=== PATIENT | female | born 1945 | race Caucasian/White ===

== ENCOUNTER → 2016-07-28 | Outpatient (CLI) | payer MEDICARE, OTHER ==
[~2016-07-28] MED LIST: ASP81TEC PO; CHOL200035 PO; DOCU-161 PO; ESZO3TAB30 PO; FISH1200 PO; GLUC750T PO; HYDR1CAP2 PO; LEVO100T7 PO; LEVO75TA6 PO; LVT.05T PO; MULT-608 PO; POLY119P PO; SIMV20TA3 PO
--- NOTE | 2016-07-29 08:19 | Diagnostic Imaging Report ---
Bilateral screening mammogram The current study was also evaluated with a Computer Aided Detection (CAD) system. Indication: Screening. No current complaints stated on the questionnaire. COMPARISON: 02/02/15. FINDINGS: The breasts are composed of heterogeneously dense parenchyma which may decrease mammographic sensitivity. There are occasional benign-appearing calcifications. Allowing for technique and positional differences, no suspicious change is seen. IMPRESSION: No significant change. ACR BI-RADS Category 2: Benign findings. Result letter will be mailed to the patient. Note: At least 10% of breast cancer is not imaged by mammography. Dictated by: Dictated on workstation # [id number]
== END ==
LOC: RAD 10:20
PROVIDERS: ATTEND Family Medicine
DX: Z12.31 Encounter for screening mammogram for malignant neoplasm of breast (principal)
CPT/HCPCS: 77067

== ENCOUNTER → 2017-07-21 | Outpatient (CLI) | payer MEDICARE, OTHER ==
[2017-07-21] MEDS: IOHEXOL 350 MG/ML 100 ML (OMNIPAQUE 350) VIAL IV ONE (09:23)
[2017-07-21] MEDS: NS 250 ML (IVPB) BAG IV ONE (09:23)
[2017-07-21] MEDS: BARIUM SUSPENSION 2.1% (VANILLA SILQ) 450 ML PO ONE (09:23)
[2017-07-21] MEDS: CATHETER FLUSH 10 ML SYR IV PRN (09:24)
--- NOTE | 2017-07-21 10:27 | Diagnostic Imaging Report ---
PROCEDURE: CT abdomen and pelvis with and without contrast. TECHNIQUE: Precontrast acquisitions were acquired through the abdomen and pelvis. Multiple contiguous axial images were obtained through the abdomen and pelvis after the administration of intravenous contrast. INDICATION: Right upper quadrant pain extending posteriorly. Correlation is made with prior CT abdomen and pelvis from 10/06/2008. The lung bases are clear. The liver demonstrates generalized low density consistent with hepatic steatosis. No discrete liver mass is identified. The gallbladder is unremarkable. There is atrophy to the pancreas particularly pancreatic head and proximal body. The spleen is unremarkable. No adrenal mass is detected. The kidneys are unremarkable. Aorta is nonaneurysmal. There are several small lymph nodes identified in the central mesentery, nonspecific. No pathologically enlarged nodes are detected. The central retroperitoneum is unremarkable for lymphadenopathy. The small and large bowel loops are normal caliber. No obstruction is seen. The uterus and bladder are unremarkable. There is no ascites. No inguinal or iliac lymphadenopathy is detected. There does appear to be a fat-containing left inguinal hernia. IMPRESSION: 1. Hepatic steatosis. 2. Shotty lymph nodes in the central mesentery, nonspecific but can be seen with mesenteric adenitis. 3. No other significant abnormality is detected. Dictated by: Dictated on workstation # [id number]
== END ==
LOC: RAD 08:59
PROVIDERS: ATTEND Family Medicine
DX: K76.0 Fatty (change of) liver, not elsewhere classified (principal)
CPT/HCPCS: 74178

== ENCOUNTER → 2017-08-01 | Outpatient (CLI) | payer MEDICARE, OTHER | LOC: RAD 12:36 | PROVIDERS: ATTEND Family Medicine | DX: Z12.31 Encounter for screening mammogram for malignant neoplasm of breast (principal) | CPT/HCPCS: 77067 ==

== ENCOUNTER → 2018-05-28 | Outpatient (CLI) | payer MEDICARE, OTHER ==
--- NOTE | 2018-05-28 11:57 | Diagnostic Imaging Report ---
INDICATION: Fall, pain. FINDINGS: The cervical body heights are within normal limits. The prevertebral space is unremarkable. There are degenerative changes of the discs, endplates and facets; greatest at the mid to lower cervical spine. Base of the odontoid is intact. No fracture could be identified. IMPRESSION: Degenerative changes of spondylosis and facet arthrosis without radiographically apparent fracture or traumatic malalignment. Dictated by: Dictated on workstation # [id number]
--- NOTE | 2018-05-28 12:37 | Diagnostic Imaging Report ---
INDICATION: Fall. Back and neck pain. COMPARISON: Cervical spine views from same day. FINDINGS: Frontal and lateral radiographic views of the cervical spine were obtained. There is age indeterminate compression deformity of T4. Otherwise, thoracic vertebral body heights are maintained. There are mild multilevel degenerative changes. Evaluation of static alignment demonstrates mild levoscoliotic deformity of the lower thoracic spine. AP static alignment is maintained. Included portions of the lungs are clear. Note is made of calcified aortic atherosclerosis. IMPRESSION: Age-indeterminate compression deformity of T4. Correlation with point tenderness is recommended. If further evaluation is indicated, MRI is recommended. Dictated by: Dictated on workstation # [id number]
== END ==
LOC: RAD 11:27
PROVIDERS: ATTEND Family Medicine
DX: M47.812 Spondylosis without myelopathy or radiculopathy, cervical region (principal); M43.8X4 Other specified deforming dorsopathies, thoracic region; W00.9XXA Unspecified fall due to ice and snow, initial encounter
CPT/HCPCS: 72040; 72072

== ENCOUNTER → 2018-08-15 | Outpatient (CLI) | payer MEDICARE, OTHER ==
--- NOTE | 2018-08-15 14:44 | Diagnostic Imaging Report ---
INDICATION: Routine screening. COMPARISON: 08/01/2017 and 07/28/2016. TECHNIQUE: 2D and 3D bilateral screening mammography was performed with CAD. FINDINGS: Both breasts remain heterogeneously dense, limiting the sensitivity of mammography. Benign parenchymal and vascular calcifications are identified bilaterally. No new mass or malignant appearing microcalcifications are seen. The slightly nodular density in the outer right breast on the CC view appears stable. The axillae are unremarkable. IMPRESSION: No mammographic features suspicious for malignancy are identified. ACR BI-RADS Category 2: Benign findings. Result letter will be mailed to the patient. Note: At least 10% of breast cancer is not imaged by mammography. Dictated by: Dictated on workstation # [id number]
== END ==
LOC: RAD 09:39
PROVIDERS: ATTEND Nurse Practitioner Family
DX: Z12.31 Encounter for screening mammogram for malignant neoplasm of breast (principal)
CPT/HCPCS: 77067

== ENCOUNTER → 2018-08-20 | Outpatient (CLI) | payer MEDICARE, OTHER ==
--- NOTE | 2018-08-20 15:52 | Diagnostic Imaging Report ---
INDICATION: Fall with mid back pain and upper arm weakness. COMPARISON: Correlation is made with thoracic spine radiographs from 05/28/2018. FINDINGS: Curvature and alignment is normal. There appears to be mild superior endplate compression deformity involving the T2, T4 and T5 vertebral bodies. There is some mild edema along the superior endplate of the T2 and T4 level consistent with acute/subacute fractures. No abnormal marrow signal or edema within the T5 vertebral body is seen and this may be more chronic. There is generalized degenerative disc disease throughout the thoracic spine vertebral disc space narrowing and desiccation. Thoracic cord does show normal signal intensity. No epidural fluid collection is identified. No focal disc protrusion is seen. Small disc/osteophyte complex at right para midline location of the T2-T3 level is seen but no resultant central canal stenosis is identified. The paraspinous tissues are unremarkable. IMPRESSION: Findings consistent with acute/subacute superior endplate fracture of the T2 and T4 vertebral bodies with slight compression. No retropulsion is seen. There also appears to be chronic compression deformity involving the T5 vertebral body. Dictated by: Dictated on workstation # [id number]
== END ==
LOC: RAD 14:49
PROVIDERS: ATTEND Family Medicine
DX: S22.000A Wedge compression fracture of unspecified thoracic vertebra, initial encounter for closed fracture (principal); W19.XXXA Unspecified fall, initial encounter
CPT/HCPCS: 72146

== ENCOUNTER 2019-01-28 14:43 | Outpatient (RCR) | payer MEDICARE, OTHER ==
--- NOTE | 2019-01-28 15:42 | Diagnostic Imaging Report ---
INDICATION: Fall. Back pain. COMPARISON: None FINDINGS: Frontal and lateral views of the lumbar spine were obtained. Evaluation of static alignment shows slight grade 1 anterolisthesis at L4-L5 and slight grade 1 retrolisthesis at L5-S1. There is no evidence of jumped facets. Vertebral body heights are maintained. There is no evidence of acute fracture. There is also mild intervertebral disc height loss at the L4-L5 and L5-S1 levels. No unexpected radiopaque foreign bodies are seen. Moderate amount of air and stool is noted within the included portions of the colon. IMPRESSION: 1. Mild degenerative changes of the lumbar spine greatest at L4-L5 and L5-S1 levels. 2. No evidence of acute fracture or dislocation. 3. Moderate colonic air and stool. Please correlate for constipation. Dictated by: Dictated on workstation # [id number]
--- NOTE | 2019-01-28 17:40 | Diagnostic Imaging Report ---
EXAMINATION: Sacroiliac joints. INDICATION: Back pain. FINDINGS: Three views were obtained. There is no fracture, dislocation, or acute bony abnormality evident. There is mild degenerative disease involving the sacroiliac joints. The degenerative changes seem similar to the CT abdomen/pelvis exam of 07/21/2017. The soft tissues are unremarkable. IMPRESSION: 1. There is no evidence for an acute bony abnormality. 2. If there is clinical concern regarding a sacral insufficiency fracture, then MRI will be recommended for further evaluation. Dictated by: Dictated on workstation # [id number]
== END 2019-04-28 | disposition home or self-care (01) ==
LOC: RAD 14:43
PROVIDERS: ATTEND Nurse Practitioner Family
DX: M47.817 Spondylosis without myelopathy or radiculopathy, lumbosacral region (principal); W19.XXXA Unspecified fall, initial encounter
CPT/HCPCS: 72100; 72202

== ENCOUNTER → 2019-12-17 | Outpatient (CLI) | payer MEDICARE, OTHER ==
--- NOTE | 2019-12-17 12:58 | Diagnostic Imaging Report ---
INDICATION: Routine screening. COMPARISON: 08/15/2018 and 08/01/2017. TECHNIQUE: 2D and 3D bilateral screening mammography was performed with CAD. FINDINGS: Both breasts remain heterogeneously dense, limiting the sensitivity of mammography. There are occasional benign calcifications in both breasts. No mass or malignant appearing microcalcifications are seen. The axillae are unremarkable. IMPRESSION: No mammographic features suspicious for malignancy are identified. ACR BI-RADS Category 2: Benign findings. Result letter will be mailed to the patient. Note: At least 10% of breast cancer is not imaged by mammography. Dictated by: Dictated on workstation # [id number]
== END ==
LOC: RAD 08:15
PROVIDERS: ATTEND Nurse Practitioner Family
DX: Z12.31 Encounter for screening mammogram for malignant neoplasm of breast (principal)
CPT/HCPCS: 77063; 77067

== ENCOUNTER → 2020-12-29 | Outpatient (CLI) | payer MEDICARE, OTHER ==
--- NOTE | 2020-12-29 13:19 | Diagnostic Imaging Report ---
Indication: Routine screening. Comparison is made with prior mammogram from 12/17/2019 and 08/15/2018. 2-D and 3-D bilateral screening mammography was performed with CAD. Both breasts are heterogeneously dense, limiting the sensitivity of mammography. There are benign parenchymal and vascular calcifications. No dominant mass or malignant-appearing microcalcifications are seen. Axillae are unremarkable. IMPRESSION: BI-RADS Category 2 No mammographic features suspicious for malignancy are identified. ACR BI-RADS Category 2: Benign findings. Result letter will be mailed to the patient. Note: At least 10% of breast cancer is not imaged by mammography. Dictated by: Dictated on workstation # [id number]
--- NOTE | 2020-12-29 16:02 | Diagnostic Imaging Report ---
INDICATION: 75-year-old asymptomatic postmenopausal female COMPARISON: 12/11/2000 FINDINGS: AP Spine L1-L4: [BMD (g/cm2): 0.646] [T-Score: -4.6] [Z-Score: -2.6] [BMD Previous: 1.023] [BMD % Change: -36.9] LT Hip Neck: [BMD (g/cm2): 0.679] [T-Score: -2.6] [Z-Score: -0.5] LT Hip Total: [BMD (g/cm2):0.759] [T-Score:-2.0] [Z-Score: 0.0] [BMD Previous: 1.000] [BMD % Change: -24.1] RT Hip Neck: [BMD (g/cm2):0.724] [T-Score:-2.3] [Z-Score:-0.2] RT Hip Total: [BMD (g/cm2):0.800] [T-score:-1.6] [Z-Score:0.3] [BMD Previous:0.965] [BMD % Change:-17.1] *Indicates significant change from prior examination based on 95% confidence level. World Health Organization criteria for BMD interpretation classify patients as Normal (T-score at or above -1.0), Osteopenic (T-score between -1.0 and -2.5) or Osteoporotic (T-score at or below -2.5). LIMITATIONS AND MODIFICATION: None. FRACTURE RISK (FRAX SCORE): Not applicable as patient meets criteria for osteoporosis. IMPRESSION: 1. Osteoporosis. 2. The bone marrow density has decreased since prior examination, although due to differences in technique and the 20 year time span since prior exam, direct comparison between the 2 studies is suboptimal to assess for change. 3. See below National Osteoporosis Foundation guidelines on when to potentially initiate pharmacologic therapy. Based on the National Osteoporosis Foundation Guidelines, pharmacologic treatment should be initiated in any of the following, unless clinical conditions suggest otherwise: * Any patient with prior fragility fracture of the hip or vertebrae. A spine fracture indicates 5X risk for subsequent spine fracture and 2X risk for subsequent hip fracture. * Osteoporosis (T-score <-2.5). * Postmenopausal women and men age 50 and older with low bone mass/osteopenia (T-score between -1.0 and -2.5) by DXA and 10-year major osteoporotic fracture greater than 20% or a 10-year probability of hip fracture greater than 3%. These fracture risks are supplied above in the FRAX score, if applicable. * Clinician judgement and/or patient preferences may indicate treatment for people with 10-year fracture probabilities above or below these levels. Dictated by: Dictated on workstation # [id number]
== END ==
LOC: RAD 09:45
PROVIDERS: ATTEND Family Medicine
DX: Z12.31 Encounter for screening mammogram for malignant neoplasm of breast (principal); M81.0 Age-related osteoporosis without current pathological fracture; Z78.0 Asymptomatic menopausal state
CPT/HCPCS: 77063; 77067; 77080

== ENCOUNTER → 2021-03-03 | Outpatient (CLI) | payer MEDICARE, OTHER ==
[~2021-03-03] MED LIST changes: +DENOSUMAB 60 MG/1 ML (PROLIA) SQ ONE
[2021-03-03 09:25] VITALS: BP 145/79
== END ==
LOC: SDC 09:16
PROVIDERS: ATTEND Nurse Practitioner Family
DX: M81.0 Age-related osteoporosis without current pathological fracture (principal)
CPT/HCPCS: 96372

== ENCOUNTER → 2021-03-03 | Outpatient (CLI) | payer MEDICARE, OTHER ==
[~2021-03-03] MED LIST changes: -DENOSUMAB 60 MG/1 ML (PROLIA) SQ ONE
--- NOTE | 2021-03-03 15:38 | Diagnostic Imaging Report ---
INDICATION: DYSPNEA ON EXERTION. TECHNIQUE: Two view chest 2:58 PM CORRELATION STUDY: 02/03/2010 FINDINGS: The heart size, mediastinal configuration and pulmonary vasculature are within normal limits. The lungs are clear with no consolidating infiltrate. There is no significant pleural effusion or pneumothorax. Visualized osseous structures are unremarkable. IMPRESSION: 1. Negative for acute abnormality of the chest. Dictated by: Dictated on workstation # [id number]
== END ==
LOC: RAD 14:24
PROVIDERS: ATTEND Internal Medicine Cardiovascular Disease
DX: R06.09 Other forms of dyspnea (principal)
CPT/HCPCS: 71046

== ENCOUNTER → 2021-03-11 | Outpatient (CLI) | payer MEDICARE, OTHER ==
[~2021-03-11] MED LIST changes: +CATHETER FLUSH 10 ML SYR IV PRN
[2021-03-11 09:14] VITALS: BP 156/78
--- NOTE | 2021-03-11 12:41 | NUCLEAR STRESS TEST ---
TREADMILL NUCLEAR STRESS TEST Date of procedure: 03/11/2021. Primary care provider: Samantha Loomis MD. Admitting physician: Avery France Jr., MD. INDICATION: Abnormal electrocardiogram. BASELINE ELECTROCARDIOGRAM: Sinus bradycardia at 52 bpm with low voltage in the precordial leads. STRESS TEST PROCEDURE: The patient was exercised for a total of 8 minutes and 0 seconds of the standard Gopal protocol achieving a maximum MET level of 9.7. The resting heart rate was 52 bpm and the peak heart rate was 146 bpm, which represents 100% of the maximum predicted heart rate. The resting blood pressure was 146/78 mmHg and the peak blood pressure was 181/72 mmHg. This represents a normal heart rate and a normal blood pressure response to exercise. The test was stopped due to fatigue. There was no chest discomfort during the test. There were no arrhythmias during the test. There were no significant stress induced electrocardiogram changes. The patient exhibited excellent exercise ca pacity for age. NUCLEAR PROCEDURE: The patient was administered 10.6 mCi of intravenous technetium 99m Tetrofosmin at rest for the rest images. The patient was subsequently administered 29.3 mCi of intravenous technetium 99 M Tetrofosmin at peak stress for the stress images. Following an appropriate wait after each injection, imaging was obtained. The images were subsequently processed and reformatted in the usual views. Gated imaging was obtained. The image quality was adequate with some degree of gastrointestinal and motion artifact. CT attenuation correction was used as a adjunct to standard imaging. Both the corrected and uncorrected images were reviewed for interpretation. NUCLEAR RESULTS: There was normal myocardial perfusion in all segments without evidence of infarction or ischemia. There was normal left ventricular chamber size with an end-diastolic volume of 18 mL and an end-systolic volume of 5 mL. There was no evidence of transient ischemic dilatation. The TID ratio was 0.92. There was normal wall motion in all segments with a calculated ejection fraction of 72%. IMPRESSION: 1. Normal heart rate and blood pressure response to exercise. 2. There was no chest discomfort, arrhythmias, or electrocardiogram changes during the test. 3. The patient exhibited excellent exercise capacity for age at 8 minutes of the Gopal protocol. 4. There was normal myocardial perfusion in all segments without evidence of infarction or ischemia. 5. There was normal wall motion in all segments with a calculated ejection fraction of 72%. Certain portions of this document may have been dictated utilizing voice recognition technology. Inherent to this technology, typographical and grammatical errors may exist. As much as I am diligent to identify and correct these mistakes, some errors may remain in the document. AVERY FRANCE JR, MD Mar 11, 2021 12:41
== END ==
LOC: CARD 07:45
PROVIDERS: ATTEND Internal Medicine Cardiovascular Disease
DX: R94.31 Abnormal electrocardiogram [ECG] [EKG] (principal)
CPT/HCPCS: 78452; 93017; A9502

== ENCOUNTER 2021-03-22 11:59 | Outpatient (CLI) | payer MEDICARE, OTHER | END 2021-03-22 12:45 | LOC: SLEEP 11:59 | PROVIDERS: ATTEND Internal Medicine Cardiovascular Disease | DX: G47.9 Sleep disorder, unspecified (principal) | CPT/HCPCS: G0399 ==

== ENCOUNTER → 2021-03-22 | Outpatient (CLI) | payer MEDICARE, OTHER ==
[~2021-03-22] MED LIST changes: -CATHETER FLUSH 10 ML SYR IV PRN
== END ==
LOC: CARD 12:00
PROVIDERS: ATTEND Internal Medicine Cardiovascular Disease
DX: I51.7 Cardiomegaly (principal); I35.8 Other nonrheumatic aortic valve disorders
CPT/HCPCS: 93306

== ENCOUNTER 2021-05-24 09:17 | Outpatient (CLI) | payer MEDICARE, OTHER ==
[~2021-05-24] VITALS: Ht 147.3 cm; Wt 58.0 kg
[2021-05-24 09:20] VITALS: BP 170/65
[2021-05-24 09:30] VITALS: BP 170/65
[2021-05-24] MEDS ORDERED: CASIRIVIMAB/IMDEVIMAB 1,200 MG in NS (IVPB) 50 ML IV ONE (09:30)
[2021-05-24] MEDS ORDERED: ONDANSETRON 4 MG/2 ML (SDV) Z0FRAN IV PRN (09:30)
[2021-05-24] MEDS ORDERED: diphenhydrAMINE 50 MG/ML INJ (BENADRYL) IV PRN (09:30)
[2021-05-24] MEDS ORDERED: EPINEPHrine INJECTION 1 MG/ML AMP IM PRN (09:30)
[2021-05-24] MEDS ORDERED: ACETAMINOPHEN 500 MG TAB (TYLENOL) PO PRN (09:30)
[2021-05-24 10:30] VITALS: BP 180/71
== END 2021-05-24 10:45 | disposition home or self-care (01) ==
LOC: INFUSION 09:17
PROVIDERS: ATTEND Nurse Practitioner Family
DX: U07.1 COVID-19 (principal)

== ENCOUNTER 2021-07-19 15:09 | Outpatient (RCR) | payer MEDICARE, OTHER | END 2021-07-28 | disposition home or self-care (01) | LOC: CR3 15:09 | PROVIDERS: ATTEND Nurse Practitioner Family | DX: Z29.8 Encounter for other specified prophylactic measures (principal) ==

== ENCOUNTER → 2021-09-16 | Outpatient (CLI) | payer MEDICARE, OTHER ==
[~2021-09-16] VITALS: Ht 147.3 cm; Wt 58.0 kg
[~2021-09-16] MED LIST changes: +DENOSUMAB 60 MG/1 ML (PROLIA) SQ SCH
[2021-09-16 09:55] VITALS: BP 108/67
== END ==
LOC: SDC 08:58
PROVIDERS: ATTEND Nurse Practitioner Family
DX: M81.0 Age-related osteoporosis without current pathological fracture (principal)
CPT/HCPCS: 96372

== ENCOUNTER → 2021-12-30 | Outpatient (CLI) | payer MEDICARE, OTHER ==
[~2021-12-30] MED LIST changes: -DENOSUMAB 60 MG/1 ML (PROLIA) SQ SCH
--- NOTE | 2021-12-31 09:06 | Diagnostic Imaging Report ---
3D bilateral screening mammogram with CAD. CAD is utilized. The current study was also evaluated with a Computer Aided Detection (CAD) system. This study was compared to the prior exams of 08/15/2018, 12/17/2019 and 12/29/2020. At this time there are no current complaints. The current study was also evaluated with a Computer Aided Detection (CAD) system. FINDINGS: The fibroglandular tissue in both breasts is heterogeneously dense. This does limit the sensitivity of this exam. Overall, there does not appear to have been any significant change when compared to the prior study. No primary or secondary sign of malignancy is noted. IMPRESSION: There is no radiographic evidence for malignancy. ACR BI-RADS Category 1: Negative. Result letter will be mailed to the patient. Note: At least 10% of breast cancer is not imaged by mammography. Dictated by: Dictated on workstation # [id number]
== END ==
LOC: RAD 10:24
PROVIDERS: ATTEND Family Medicine
DX: Z12.31 Encounter for screening mammogram for malignant neoplasm of breast (principal)
CPT/HCPCS: 77063; 77067

== ENCOUNTER 2022-04-06 09:29 | Outpatient (CLI) | payer MEDICARE, OTHER ==
[~2022-04-06] VITALS: Ht 148.6 cm; Wt 57.7 kg
[2022-04-06] MEDS ORDERED: DENOSUMAB 60 MG/1 ML (PROLIA) SQ SCH (10:00)
[2022-04-06 10:12] VITALS: BP 133/68
[2022-04-06] MEDS ORDERED: CHOL500050 PO (14:15)
[2022-04-06] MEDS ORDERED: CALC-140 PO (14:22)
[2022-04-06] MEDS ORDERED: LOSA25TA41 PO (14:22)
[2022-04-06] MEDS ORDERED: SIMV20TA26 PO (14:22)
[2022-04-06] MEDS ORDERED: DOCU100C37 PO (14:22)
[2022-04-06] MEDS ORDERED: ASPI-1238 PO (14:22)
[2022-04-06] MEDS ORDERED: MAGN250T13 PO (14:22)
[2022-04-06] MEDS ORDERED: MULT-567 PO (14:22)
[2022-04-06] MEDS ORDERED: GLUC750C PO (14:22)
[2022-04-06] MEDS ORDERED: LIOT5TAB10 PO (14:27)
[2022-04-06] MEDS ORDERED: PANT40TA52 PO (14:27)
[2022-04-06] MEDS ORDERED: LEVO88TA68 PO (14:27)
== END 2022-04-06 10:12 | disposition home or self-care (01) ==
LOC: SDC 09:29
PROVIDERS: ATTEND Nurse Practitioner Family
DX: M81.0 Age-related osteoporosis without current pathological fracture (principal)
CPT/HCPCS: 96372

== ENCOUNTER → 2022-10-20 | Outpatient (CLI) | payer MEDICARE ==
[~2022-10-20] VITALS: Wt 57.7 kg
[~2022-10-20] MED LIST changes: +ASPI-1238 PO; +CALC-140 PO; +CHOL500050 PO; +DENOSUMAB 60 MG/1 ML (PROLIA) SQ ONE; +DOCU100C37 PO; +GLUC750C PO; +LEVO88TA68 PO; +LIOT5TAB10 PO; +LOSA25TA41 PO; +MAGN250T13 PO; +MULT-567 PO; +PANT40TA52 PO; +SIMV20TA26 PO
[2022-10-20 10:13] VITALS: BP 152/72
== END ==
LOC: SDC 09:54
PROVIDERS: ATTEND Nurse Practitioner Family
DX: M81.0 Age-related osteoporosis without current pathological fracture (principal)
CPT/HCPCS: 96372